=== PATIENT | male | born 1950 | race Caucasian/White ===

== ENCOUNTER 2016-09-19 21:20 | Emergency (ER) | payer MEDICARE, OTHER ==
[2016-09-19] MEDS ORDERED: methylPREDNISolone Sod Succ/PF 125 MG/2 ML VIAL ONE (22:07)
[2016-09-19 22:15] LABS: #Basophils 0.1 thou/uL (0.0-0.2); #Eosinphils 0.4 thou/uL (0.0-0.7); #Lymphocytes 1.6 thou/uL (1.20-3.40); #Monocytes 0.8 thou/uL (0.11-0.59); #Neutrophils 5.3 thou/uL (1.40-6.50); %Basophils 1.6 % (0.0-1.0); %Eosinophils 5.1 % (0.0-10.0); %Lymphocytes 19.2 % (21.0-51.0); %Monocytes 9.8 % (0.0-10.0); %Neutrophils 64.3 % (42.0-75.0); Hemoglobin 12.2 g/dL (14.0-18.0); Mean Corpuscular HGB CONC 34.2 g/dL (32.0-36.0); Mean Corpuscular Hemoglobin 33.5 pg (27.0-31.0); Mean Platelet Volume 7.7 fL (7.4-10.4); Platelet Count 247 thou/uL (130-400); RBC Distribution Width 13.4 % (11.5-14.5); Red Blood Cell (RBC) Count 3.62 mill/uL (4.70-6.10); White Blood Cell (WBC) Count 8.2 thou/uL (4.8-10.8)
[2016-09-19] MEDS ORDERED: Magnesium Sulfate 2 GM/100 ML BAG ONE (22:20)
[2016-09-19 22:23] LABS: ALT (SGPT) 16 U/L (8-55); AST (SGOT) 23 U/L (5-34); Albumin 4.1 g/dL (3.4-4.8); Alkaline Phosphatase 70 U/L (40-150); Anion Gap 13 mmol/L (10-20); BUN (Urea Nitrogen) 25 mg/dL (8.4-25.7); Base Excess 0.3 mEq/L (-2 - +2); Bilirubin, Total 0.3 mg/dL (0.2-1.2); Calc. Creatinine Clearance 0 mL/min (70-130); Carbon Dioxide 24 mmol/L (23-31); Chloride 106 mmol/L (98-107); Estimated GFR-MDRD 75; Globulin 2.7 g/dL (2.4-3.5); Glucose 132 mg/dL (80-115); Hemoglobin (Hb) 10.7 g/dL (12.6-17.4); Potassium 3.4 mmol/L (3.5-5.1); Protein, Total 6.8 g/dL (5.8-8.1); Sodium 140 mmol/L (136-145)
[2016-09-19 22:27] LABS: CKMB 1.6 ng/mL (0-6.6); Troponin I Less than 0.010 ng/mL (< 0.028)
--- NOTE | 2016-09-19 23:46 | RAD ---
AP PORTABLE CHEST 09/19/2016 2149 HOURS COMPARISON 07/06/2012 FINDINGS: There is some lingular streaking on the left that was not present before. This could be just atelec tasis, as it is rather linear, though an early focal pneumonia is not excluded. The left hilum is a little more prominent, but this is probably due to the patient being turned slightly. No effusions or other major infiltrates are seen. The heart size is unchanged. There are no congestive finding s. IMPRESSION: Linear lingular streaking. POS: HOME
== END 2016-09-19 23:51 | disposition home or self-care (01) ==
LOC: BURERS 21:20
DX: J45.20 Mild intermittent asthma, uncomplicated (principal); I10 Essential (primary) hypertension; Z79.899 Other long term (current) drug therapy
CPT/HCPCS: 36415; 71010; 80053; 82553; 82805; 83880; 84484; 85025; 85379; 93005; 96365; 96368; J2930; J3475; J7620

== ENCOUNTER 2017-08-28 19:17 | Emergency (ER) | payer MEDICARE ==
[2017-08-28 19:41] LABS: Bilirubin Negative (Negative); Blood, Urine Large (Negative); Glucose, Urine (Dipstick) Negative (Negative); Leukocyte Negative (Negative); Nitrite Negative (Negative); Protein, Urine (Dipstick) 100 mg/dL (Neg-Trace); Specific Gravity, Urine 1.025 (1.005-1.030); Urobilinogen 0.2 mg/dL (0.2-1.0); pH, Urine 5.5 (5.0-9.0)
[2017-08-28 19:42] LABS: Clarity Cloudy (Clear)
[2017-08-28 19:45] LABS: Bacteria/HPF Rare-Few HPF (None Seen); RBC/HPF GREATER THAN 50-TNTC HPF (0-3); Squamous Epithelial 0-3 HPF (0-3); WBC/HPF 0-3 HPF (0-3)
--- NOTE | 2017-08-28 21:39 | CT ---
CT OF THE ABDOMEN AND PELVIS WITHOUT CONTRAST: Date: 08-28-17 Comparison: Prior CT dated 09-16-14. FINDINGS: Today's exam shows a distal left ureteral calculus, very close to the left UVJ, that measures 5-6 mm in size. There is really no significant hydronephrosis at the moment. A nonobstructing calculus is se en in the lower pole of the left kidney. The right kidney shows no hydronephrosis. No renal masses we re appreciated within the limitations of the noncontrast study. The bladder is difficult to evaluate without contrast, but no gross mass is visible. There has been a prior prostatectomy. The lung bases are clear except for some atelectasis. The liver, spleen, pancreas, gallbladder, adren al glands, and abdominal aorta showed no acute findings. There appears to have been a prior fundoplic ation. There is no distention of bowel to suggest obstruction. Diverticulosis is present without find ings of diverticulitis. No free air or free fluid was seen. CT of the pelvis shows more diverticulosis but no inflammatory changes, free fluid, or other acute ch johnnie. A fat filled left inguinal hernia was noted. There is scarring in the region of the right femor al canal which is not a new finding. The bony structures are intact with no lytic or blastic lesions seen. IMPRESSION: 1. 6 mm distal left ureteral calculus near the UVJ causing little or no hydronephrosis. 2. Nonobstructing calculus, lower pole, left kidney. 3. Colonic diverticulosis. POS: HOME
== END 2017-08-28 20:43 | disposition home or self-care (01) ==
LOC: BURERS 19:17
DX: N20.0 Calculus of kidney (principal); I10 Essential (primary) hypertension; Z79.899 Other long term (current) drug therapy
CPT/HCPCS: 74176; 81003; 81015

== ENCOUNTER 2017-10-04 16:06 | Emergency (ER) | payer MEDICARE ==
[2017-10-04] MEDS ORDERED: Morphine 4 MG/ML Carpuject ONE (16:27)
[2017-10-04] MEDS ORDERED: Ondansetron HCl/PF 4 MG/2 ML Vial ONE (16:58)
[2017-10-04] MEDS ORDERED: Ketorolac Tromethamine 30 MG/ML VIAL ONE (16:58)
[2017-10-04 17:15] LABS: ALT (SGPT) 24 U/L (8-55); AST (SGOT) 22 U/L (5-34); Albumin 4.4 g/dL (3.4-4.8); Alkaline Phosphatase 73 U/L (40-150); Anion Gap 18 mmol/L (10-20); BUN (Urea Nitrogen) 15 mg/dL (8.4-25.7); Bilirubin, Total 1.1 mg/dL (0.2-1.2); Calc. Creatinine Clearance 0 mL/min (70-130); Calcium 9.2 mg/dL (7.8-10.44); Carbon Dioxide 22 mmol/L (23-31); Chloride 101 mmol/L (98-107); Estimated GFR-MDRD 78; Globulin 2.7 g/dL (2.4-3.5); Glucose 103 mg/dL (80-115); Potassium 3.4 mmol/L (3.5-5.1); Protein, Total 7.1 g/dL (5.8-8.1); Sodium 138 mmol/L (136-145)
[2017-10-04 17:24] LABS: #Basophils 0.1 thou/uL (0.0-0.2); #Eosinphils 0.5 thou/uL (0.0-0.7); #Lymphocytes 1.6 thou/uL (1.20-3.40); #Monocytes 1.1 thou/uL (0.11-0.59); #Neutrophils 9.1 thou/uL (1.40-6.50); %Basophils 0.8 % (0.0-1.0); %Eosinophils 3.7 % (0.0-10.0); %Lymphocytes 13.1 % (21.0-51.0); %Monocytes 8.7 % (0.0-10.0); %Neutrophils 73.7 % (42.0-75.0); Mean Corpuscular HGB CONC 36.1 g/dL (32.0-36.0); Mean Corpuscular Hemoglobin 32.3 pg (27.0-31.0); Mean Corpuscular Volume 86.6 fl (80.0-94.0); Platelet Count 244 thou/uL (130-400); RBC Distribution Width 12.4 % (11.5-14.5); RBC Morphology No lipemia noted; Red Blood Cell (RBC) Count 4.34 mill/uL (4.70-6.10); White Blood Cell (WBC) Count 12.3 thou/uL (4.8-10.8)
[2017-10-04 17:25] LABS: Clarity Cloudy (Clear); Leukocyte Negative (Negative); Nitrite Negative (Negative); Specific Gravity, Urine 1.025 (1.005-1.030); pH, Urine 5.5 (5.0-9.0)
[2017-10-04 17:26] LABS: Bilirubin Small (Negative); Blood, Urine Large (Negative); Glucose, Urine (Dipstick) Negative (Negative); Protein, Urine (Dipstick) 100 mg/dL (Neg-Trace); Urobilinogen 0.2 mg/dL (0.2-1.0)
[2017-10-04 17:29] LABS: Bacteria/HPF 1+ HPF (None Seen); Crystals/HPF None Seen HPF (Negative); Hyaline Casts/LPF NONE SEEN LPF (0-3 Hyaline); Other Casts/LPF None Seen LPF (0-3 Hyaline); Oval Fat Bodies/HPF None Seen HPF (None Seen); RBC/HPF GREATER THAN 50-TNTC HPF (0-3); Renal Epithelial None Seen HPF (0-3); Sperm/HPF None Seen HPF (None Seen); Squamous Epithelial None Seen HPF (0-3); Transitional Epithelial NONE SEEN HPF (0-3); Trichomonas/HPF None Seen HPF (None Seen); WBC/HPF None Seen HPF (0-3); Yeast-All Forms None Seen HPF (None Seen)
[2017-10-04 17:30] LABS: MDiff Complete? YES
== END 2017-10-04 18:34 | disposition short-term general hospital (02) ==
LOC: BURERS 16:06
DX: N20.0 Calculus of kidney (principal); R31.0 Gross hematuria; I10 Essential (primary) hypertension; Z79.899 Other long term (current) drug therapy
CPT/HCPCS: 80053; 81003; 81015; 85025; 96361; 96372; 96374; 96375; J1885; J2270; J2405

== ENCOUNTER 2017-10-12 13:53 | Outpatient (CLI) | payer MEDICARE ==
--- NOTE | 2017-10-12 17:50 | RAD ---
ABDOMEN 10/12/17 Supine views of the abdomen are submitted. There is a very large amount of gas and fecal material pre sent which could obscure small calculi. I could not appreciate any calculi around the kidneys or in t he deep pelvis near the ureterovesical junctions. Surgical clips are seen in the pelvis from a prior dissection. There is some mild distention of both large and small bowel in this patient. The pattern is nonspecific and could just as easily be an ileus as it could be an early or partial obstruction. D epending upon his clinical presentation, further followup could be needed. IMPRESSION: 1. No gross calculi seen, but gas and feces would easily obscure them. 2. Nonspecific bowel gas pattern with some mild distention of large and small bowel, particularl y the latter. If there are clinical symptoms suggesting obstruction, then further followup could be n eeded. Code T POS: HOME
--- NOTE | 2017-10-13 07:43 | ULT ---
BILATERAL RENAL ULTRASOUND 10/12/17 Ultrasonography of the kidneys was performed. The right kidney measures 11.7 x 5.6 x 6.0 cm and the l eft measures 11.8 x 6.1 x 4.7 cm. No mass or hydronephrosis was seen in either. Cortex is ample and o f normal echogenicity bilaterally. There is no sign of urinary tract obstruction today. The urinary b ladder contains no internal defects. The wall was 3 mm thick. Bilateral ureteral jets were seen. It should be noted that there were no obvious shadowing densities within the kidneys to suggest stone s of significant size. IMPRESSION: Unremarkable renal ultrasound. POS: HOME
== END 2017-10-12 13:54 | disposition home or self-care (01) ==
LOC: BURULT 13:53
PROVIDERS: ATTEND Urology
DX: N20.1 Calculus of ureter (principal)
CPT/HCPCS: 74018; 76770

== ENCOUNTER 2017-11-28 13:31 | Emergency (ER) | payer MEDICARE ==
[2017-11-28] MEDS ORDERED: Ibuprofen 200 MG TAB ONE (14:24)
--- NOTE | 2017-11-28 17:38 | RAD ---
RIGHT THIRD FINGER: 11/28/2017 FINDINGS: Three views show an avulsion fracture from the base of the distal phalanx, dorsally. This may be sub acute. There also appears to be some arthritic changes in the DIP joint itself. IMPRESSION: Avulsion from the distal phalanx, at the distal interphalangeal joint. POS: HOME
== END 2017-11-28 14:29 | disposition home or self-care (01) ==
LOC: BURERS 13:31
DX: S66.312A Strain of extensor muscle, fascia and tendon of right middle finger at wrist and hand level, initial encounter (principal); M20.011 Mallet finger of right finger(s); Z87.891 Personal history of nicotine dependence; W22.8XXA Striking against or struck by other objects, initial encounter
CPT/HCPCS: Q4049

== ENCOUNTER 2018-06-12 13:45 | Emergency (ER) | payer MEDICARE ==
[2018-06-12 14:25] LABS: #Basophils 0.1 thou/uL (0.0-0.2); #Eosinphils 0.3 thou/uL (0.0-0.7); #Lymphocytes 1.9 thou/uL (1.20-3.40); #Monocytes 0.6 thou/uL (0.11-0.59); #Neutrophils 4.8 thou/uL (1.40-6.50); %Basophils 1.3 % (0.0-1.0); %Eosinophils 3.7 % (0.0-10.0); %Lymphocytes 25.2 % (21.0-51.0); %Monocytes 7.4 % (0.0-10.0); %Neutrophils 62.3 % (42.0-75.0); Hemoglobin 14.3 g/dL (14.0-18.0); Mean Corpuscular HGB CONC 34.6 g/dL (32.0-36.0); Mean Corpuscular Hemoglobin 31.6 pg (27.0-31.0); Mean Corpuscular Volume 91.5 fL (78.0-98.0); Mean Platelet Volume 7.3 fL (7.4-10.4); Platelet Count 299 thou/uL (130-400); RBC Distribution Width 12.7 % (11.5-14.5); Red Blood Cell (RBC) Count 4.54 mill/uL (4.70-6.10); White Blood Cell (WBC) Count 7.6 thou/uL (4.8-10.8)
[2018-06-12 14:39] LABS: ALT (SGPT) 23 U/L (8-55); AST (SGOT) 20 U/L (5-34); Albumin 4.7 g/dL (3.4-4.8); Alkaline Phosphatase 78 U/L (40-150); Anion Gap 17 mmol/L (10-20); BUN (Urea Nitrogen) 17 mg/dL (8.4-25.7); Bilirubin, Total 0.7 mg/dL (0.2-1.2); Calc. Creatinine Clearance 0 mL/min (70-130); Calcium 10.4 mg/dL (7.8-10.44); Carbon Dioxide 24 mmol/L (23-31); Chloride 102 mmol/L (98-107); Estimated GFR-MDRD 89; Globulin 3.1 g/dL (2.4-3.5); Glucose 83 mg/dL (80-115); Potassium 3.9 mmol/L (3.5-5.1); Protein, Total 7.8 g/dL (5.8-8.1); Sodium 139 mmol/L (136-145)
[2018-06-12 14:48] LABS: Clarity Clear (Clear)
[2018-06-12 14:49] LABS: Bilirubin Negative (Negative); Blood, Urine Negative (Negative); Glucose, Urine (Dipstick) Negative (Negative); Leukocyte Negative (Negative); Nitrite Negative (Negative); Protein, Urine (Dipstick) Negative (Neg-Trace); Urobilinogen 0.2 mg/dL (0.2-1.0); pH, Urine 5.5 (5.0-9.0)
--- NOTE | 2018-06-12 18:54 | CT ---
CT BRAIN WITHOUT CONTRAST: 06/12/2018 FINDINGS: The ventricles are normal in size with no shift. No intracranial bleeding or extraaxial hematoma is seen. There is no sign of mass, edema, or stroke. The skull appears normal. The visible paranasal sinuses and mastoid air cells are clear. IMPRESSION: No acute intracranial finding. POS: HOME
--- NOTE | 2018-06-12 18:57 | RAD ---
CHEST TWO VIEWS: Date: 06-12-18 Comparison: 09-19-16 FINDINGS: Some lingular haziness seen before has resolved. Some minimal scarring is seen in this location. Ther e is a strip of linear atelectasis in the right base that is a new finding. No lobar consolidation or effusion was seen. Lungs are slightly hyperexpanded. Heart size is normal and there is no congestive change or pleural effusion. Median sternotomies giancarlo prior surgery. IMPRESSION: Some linear atelectasis in the right base without any convincing finding of pneumonia. POS: HOME
== END 2018-06-12 15:27 | disposition home or self-care (01) ==
LOC: BURERS 13:45
DX: J06.9 Acute upper respiratory infection, unspecified (principal); I10 Essential (primary) hypertension; I48.91 Unspecified atrial fibrillation; R73.03 Prediabetes; Z87.891 Personal history of nicotine dependence; Z79.899 Other long term (current) drug therapy; Z79.82 Long term (current) use of aspirin
CPT/HCPCS: 70450; 71046; 80053; 81003; 85025; 85652